=== PATIENT | female | born 2000 | race Caucasian/White ===

== ENCOUNTER 2018-01-25 20:03 | Emergency (ER) | payer MEDICAID ==
[~2018-01-25] VITALS: Ht 165.1 cm; Wt 54.4 kg
[~2018-01-25 20:03] MED LIST: LEVO500T21 PO
[2018-01-25 20:05] VITALS: BP 119/79
== END 2018-01-25 23:55 | disposition left against medical advice (07) ==
LOC: ER 20:03 → EDBD 20:03 → ER 23:55
DX: M25.562 Pain in left knee (principal); Z53.21 Procedure and treatment not carried out due to patient leaving prior to being seen by health care provider
CPT/HCPCS: 73560

== ENCOUNTER 2018-02-04 18:27 | Emergency (ER) | payer MEDICAID ==
[~2018-02-04] VITALS: Ht 157.5 cm; Wt 56.2 kg
[2018-02-04 19:07] VITALS: BP 121/58
== END 2018-02-04 19:27 | disposition left against medical advice (07) ==
LOC: ER 18:27
DX: S80.9 Unspecified superficial injury of knee and lower leg (principal); Z53.21 Procedure and treatment not carried out due to patient leaving prior to being seen by health care provider; X58.XXXD Exposure to other specified factors, subsequent encounter

== ENCOUNTER 2022-12-20 21:15 | Emergency (ER) | payer MEDICAID, OTHER ==
[~2022-12-20] VITALS: Ht 157.5 cm; Wt 54.0 kg
[~2022-12-20 21:15] MED LIST changes: -LEVO500T21 PO; +LEVO500T31 PO
[2022-12-20 22:46] LABS: Urine Amorphous Crystal FEW /hpf (None Seen); Urine Bacteria NONE SEEN /hpf (None Seen); Urine Blood Negative /uL (Negative); Urine Specific Gravity 1.022 (1.001-1.035); Urine WBC 8 /hpf (0 - 5)
[2022-12-21] MEDS ORDERED: SULF800T7 PO ×2 (03:21)
[2022-12-21] MEDS ORDERED: cefTRIAXone SOD 1,000 MG VL IM ONE (03:30)
[2022-12-21] MEDS ORDERED: AZITHROMYCIN 250 MG TAB PO ONE (03:30)
[2022-12-21 06:24] VITALS: BP 117/80
[2022-12-22 08:07] LABS: RPR Non Reactive (Non Reactive)
== END 2022-12-21 06:23 | disposition home or self-care (01) ==
LOC: ER 21:15
DX: N39.0 Urinary tract infection, site not specified (principal); Z20.2 Contact with and (suspected) exposure to infections with a predominantly sexual mode of transmission; Z79.899 Other long term (current) drug therapy; Z79.2 Long term (current) use of antibiotics; Z88.0 Allergy status to penicillin
CPT/HCPCS: 81001; 81025; 86592; 87491; 87591; 96372; 99283; J0696